=== PATIENT | female | born 1985 | race Caucasian/White ===

== ENCOUNTER 2018-02-27 07:11 | Emergency (ER) | payer OTHER ==
[~2018-02-27] VITALS: Ht 165.1 cm; Wt 90.7 kg
[~2018-02-27 07:11] MED LIST: AMOX500C2; AMOX500C2 PO; HYDR-3454 PO; OMEP20CA12 PO
--- NOTE | 2018-02-27 07:33 | ED Upper Extremity ---
General Chief Complaint: Upper Extremity Stated Complaint: SHOULDER PAIN Source: patient, other Exam Limitations: no limitations History of Present Illness Date Seen by Provider: Feb 27, 2018 Time Seen by Provider: 07:22 Initial Comments The patient presents to ER by private conveyance with chief complaint that for the past 3 days now she's been experiencing some pain in her right shoulder on movement. It started up when she woke up in the morning. She says she's had pain in her shoulder before like this but usually goes away in a few days on its own. She's been using a Profen with moderate to good relief. Her last dose of ibuprofen was around 3 or 4:00 in the morning she took 600 mg. She said she has not had any trauma, falls or other previous history of injury or surgery on her shoulder. She has no history of gout. No history of significant medical problems or surgeries. She has an IUD in place. Allergies and Home Medications Allergies Coded Allergies: NKANo Known Allergies (Verified Allergy, Unknown, 01/16/06) No Known Drug Allergies (Verified , 11/08/07) Home Medications Hydrocodone Bit/Acetaminophen 1 Each Tablet, 1 TAB PO Q4H PRN for PAIN Prescribed by: GEORGES POMPA on 03/02/14 0941 Omeprazole 20 Mg Capsule.dr, 20 MG PO DAILY, (Reported) Patient Home Medication List Home Medication List Reviewed: Yes Review of Systems Constitutional: No chills, No diaphoresis EENTM: No hearing loss, No ear pain Respiratory: No cough, No short of breath Cardiovascular: No chest pain, No edema Gastrointestinal: No abdominal pain, No nausea Genitourinary: No discharge, No dysuria : No Control/STD Prophylaxis: IUD Past Dbqbeqf-Kvvqpb-Kfyzrf Hx Patient Social History Alcohol Use: Occasionally Uses Recreational Drug Use: No Smoking Status: Never a Smoker Seasonal Allergies Seasonal Allergies: Yes Past Medical History Gallbladder Family Medical History Diabetes Physical Exam Vital Signs Vital Signs - First Documented 02/27/18 07:23 Temp 98.0 Pulse 78 Resp 16 B/P (MAP) 129/76 (93) Pulse Ox 100 O2 Delivery Room Air Capillary Refill : Height, Weight, BMI Height: 5'5" Weight: 211lbs. oz. 95.846106cn; 35.11 BMI Method:Stated General Appearance: WD/WN, no apparent distress HEENT: PERRL/EOMI, pharynx normal Neck: non-tender, full range of motion, supple, normal inspection Cardiovascular: normal peripheral pulses, regular rate, rhythm Respiratory: chest non-tender, no respiratory distress, no accessory muscle use Shoulder: normal inspection, no evidence of injury, limited ROM (abduction limited to 90 passive right and extension limited to about 30 right side. Full flexion.), pain, soft tissue tenderness Elbow/Forearm: normal inspection, non-tender, no evidence of injury, normal ROM , Right Progress/Results/Core Measures Results/Orders My Orders Orders - ELISABET RIVERA Shoulder, Right, 3 Views (02/27/18 07:29) Vital Signs/I&O 02/27/18 07:23 Temp 98.0 Pulse 78 Resp 16 B/P (MAP) 129/76 (93) Pulse Ox 100 O2 Delivery Room Air Progress Progress Note : Time: 07:32 Progress Note Non-injury shoulder pain consistent with possible osteoarthritis versus other. We'll get an x-ray and then have her follow-up with primary care for further evaluation. He had some ibuprofen and we have offered her Toradol but she is declining at this time. We will give her an ice pack and encourage conservative care. Diagnostic Imaging Diagonstic Imaging: Xray Plain Films/CT/US/NM/MRI: other (right shoulder) Comments No acute osseous abnormalities. Reviewed: Reviewed by Me Departure Impression Primary Impression: Shoulder pain, right Qualified Codes: M25.511 - Pain in right shoulder Disposition: 01 HOME, SELF-CARE Condition: Stable Departure-Patient Inst. Decision time for Depature: 08:34 Referrals: LUCINDA ROGERS DO (PCP/Family) Primary Care Physician Patient Instructions: Passive Range of Motion Exercises, Neck and Shoulders Add. Discharge Instructions: Apply ice for 20 minutes every 4 hours as needed alternated with heat. You can also use creams such as icy hot on your shoulder. Start taking the Naprosyn prescription tablet one tablet twice a day or 2 [id number] twice a day for the next 2 weeks. You can also use Tylenol 1000 mg every 8 hours as needed for breakthrough pain. If you're not seeing relief and 1-2 weeks then you should follow-up with primary care for referral to physical therapy and further evaluation. All discharge instructions reviewed with patient and/or family. Voiced understanding. Scripts Naproxen (Naprosyn) 500 Mg Tablet 500 MG PO BID for 14 Days, #30 TAB 0 Refills Prov: ELISABET RIVERA 02/27/18 Work/School Note: Work Release Form Date Seen in the Emergency Department: Feb 27, 2018 Return to Work: Feb 27, 2018 Restrictions: Need Release from Doctor Other Restrictions Listed Below: No lifting with right shoulder until . ELISABET RIVERA Feb 27, 2018 07:33
[2018-02-27] MEDS ORDERED: NAPR-1071 PO (08:37)
[2018-02-27 08:44] VITALS: BP 129/76
--- NOTE | 2018-02-27 09:33 | Diagnostic Imaging Report ---
INDICATION: Right shoulder pain starting two days earlier. No known injury. TECHNIQUE: Three views of the right shoulder CORRELATION STUDY: None FINDINGS: The glenohumeral and acromioclavicular alignment are maintained and unremarkable. There is no evidence for acute fracture or dislocation. Mild prominent C7 cervical ribs. The visualized soft tissues are unremarkable. IMPRESSION: 1. Negative for acute bony abnormality about the shoulder. Dictated by: Dictated on workstation # [id number]
== END 2018-02-27 08:44 | disposition home or self-care (01) ==
LOC: EDUNIT# 07:11 → ER 07:12
DX: M25.511 Pain in right shoulder (principal)
CPT/HCPCS: 73030

== ENCOUNTER → 2022-04-19 | Outpatient (CLI) | payer OTHER ==
[~2022-04-19] MED LIST changes: +NAPR-1071 PO
--- NOTE | 2022-04-19 13:56 | Diagnostic Imaging Report ---
INDICATION: Left breast lumps. No prior studies are available for comparison. Sonographic interrogation at the area of lump was performed. This is the upper as well as the upper inner aspect of the left breast. No sonographic abnormality is identified. No solid or cystic masses detected. IMPRESSION: No sonographic abnormalities identified. Continued close clinical and self breast exam is recommended to confirm stability. If some symptoms persist, consideration should be given to performance of a diagnostic mammogram. ACR BI-RADS Category 1: Negative. Result letter will be mailed to the patient. Note: At least 10% of breast cancer is not imaged by mammography. BI-RADS Category 1 Dictated by: Dictated on workstation # [id number]
== END ==
LOC: RAD 11:44
PROVIDERS: ATTEND Nurse Practitioner Family
DX: N63.20 Unspecified lump in the left breast, unspecified quadrant (principal)

== ENCOUNTER 2022-08-20 11:11 | Emergency (ER) | payer OTHER ==
[~2022-08-20] VITALS: Ht 165.1 cm; Wt 107.0 kg
[2022-08-20 11:30] LABS: BILIRUBIN,URINE NEGATIVE (NEGATIVE); CLARITY,URINE CLEAR; COLOR,URINE YELLOW; GLUCOSE, URINE (UA) NEGATIVE (NEGATIVE); KETONES,URINE NEGATIVE (NEGATIVE); LEUKOCYTE ESTERASE ,URINE TRACE (NEGATIVE); NITRITE,URINE NEGATIVE (NEGATIVE); PROTEIN,URINE NEGATIVE (NEGATIVE)
[2022-08-20] MEDS ORDERED: ONDANSETRON 4 MG/2 ML (SDV) Z0FRAN IVP ONE (11:30)
[2022-08-20] MEDS ORDERED: NS IV 1000 ML 1,000 ML IV STA (11:30)
--- NOTE | 2022-08-20 11:34 | ED General ---
General Chief Complaint: General Problems/Pain Stated Complaint: DEHYDRATED Nursing Triage Note: PT AMB TO ED BY POV WITH C/O "FEELING OFF." PT REPORTS SHE HAD A TUBAL LIGATION ON MONDAY WITH NO ISSUES. PT BEGAN FEELING LIGHT HEADED AND "FOGGY" TODAY WITH SOME SLIGHT NAUSEA. DENIES PAIN, URINARY SX, FEVER, OR ANY OTHER SX AT THIS TIME. STATES SHE PROBABLY HAS NOT BEEN DRINKING ENOUGH FLUIDS. Source of Information: Patient Exam Limitations: No Limitations (YISEL COATS) History of Present Illness Date Seen by Provider: Aug 20, 2022 Time Seen by Provider: 11:31 Initial Comments Patient is a 37-year-old female who presents the ED with feeling off, weak and lightheaded. She states symptoms started this morning when she woke up. [place] "foggy" today with some light nausea. Denies any vomiting. She had a tubal ligation performed by Dr. Franz at [facility] this past Monday. She states since the surgery she has had no pain in her lower abdomen. No pain today. She states her incision sites appear to be healing. Denies any drainage, redness or swelling around the incision sites in her lower abdomen. She states she is urinating without any difficulties. Has not been eating as much postsurgery. She states she feels dehydrated and requesting fluids. She denies of any chest pain, cough, fever, vomiting, diarrhea, dysuria, hematuria, visual changes, sore throat or ear pain. No known medical problems or takes jina ly medication. Not currently on antibiotics (YISEL COATS) Allergies and Home Medications Allergies Coded Allergies: NKANo Known Allergies (Verified Allergy, Unknown, 01/16/06) No Known Drug Allergies (Verified , 11/08/07) Patient Home Medication List Home Medication List Reviewed: Yes (YISEL COATS) Hydrocodone Bit/Acetaminophen (Vicodin 5-300 Mg Tablet) 1 Each Tablet, 1 TAB PO Q4H PRN for PAIN Prescribed by: GEORGES POMPA on 03/02/14 0941 Naproxen (Naprosyn) 500 Mg Tablet, 500 MG PO BID Prescribed by: ELISABET RIVERA on 02/27/18 0837 Omeprazole (Omeprazole) 20 Mg Capsule., 20 MG PO DAILY, (Reported) Entered as Reported by: GEORGINA LLAMAS on 03/01/14 0809 Review of Systems Review of Systems Constitutional: No chills, No dizziness, No fever; malaise, weakness EENTM: No ear pain, No blurred vision Respiratory: No cough, No dyspnea on exertion Cardiovascular: No chest pain, No edema Gastrointestinal: No abdominal pain, No diarrhea, No vomiting Genitourinary: No decreased output, No discharge Musculoskeletal: No back pain, No joint pain Skin: No change in color, No change in hair/nails Psychiatric/Neurological: Denies Anxiety, Denies Depressed, Denies Headache, Denies Numbness (YISEL COATS) All Other Systems Reviewed Negative Unless Noted: Yes (YISEL COATS) Past Zyvqaru-Wtpilp-Hreqya Hx Seasonal Allergies Seasonal Allergies: Yes (YISEL COATS) Past Medical History Surgeries: Yes (ERCP W/ STONE REMOVAL, STENT PLACEMENT) Gallbladder Respiratory: No Cardiac: No Neurological: No Genitourinary: No Gastrointestinal: Yes (INDIGESTION) Musculoskeletal: No Endocrine: No HEENT: No Cancer: No Psychosocial: No Integumentary: No (YISEL COATS) Family Medical History Diabetes (YISEL COATS) Physical Exam Vital Signs Vital Signs - First Documented 08/20/22 11:18 Temp 36.9 Pulse 84 Resp 16 B/P (MAP) 149/94 (112) Pulse Ox 100 O2 Delivery Room Air (CHRISTINE MAIN MD) Vital Signs Capillary Refill : Less Than 3 Seconds (YISEL COATS) Height, Weight, BMI Height: 5'5.00" Weight: 200lbs. oz. 90.089481wb; 39.00 BMI Method:Stated General Appearance: No Apparent Distress, WD/WN Eyes: Bilateral Eye Normal Inspection, Bilateral Eye PERRL, Bilateral Eye EOMI HEENT: PERRL/EOMI, TMs Normal, Normal ENT Inspection, Pharynx Normal Neck: Full Range of Motion, Normal Inspection, Non Tender, Supple Respiratory: Chest Non Tender, Lungs Clear, Normal Breath Sounds, No Accessory Muscle Use, No Respiratory Distress Cardiovascular: Regular Rate, Rhythm, No Edema, No Gallop, No JVD Gastrointestinal: Normal Bowel Sounds, No Organomegaly, No Pulsatile Mass, Non Tender Extremity: Normal Capillary Refill, Normal Inspection, Normal Range of Motion, Non Tender Neurologic/Psychiatric: Alert, Oriented x3, No Motor/Sensory Deficits, Normal Mood/Affect Skin: Normal Color, Warm/Dry, Other (3 healing surgical scars to lower abdomen. No surrounding redness or swelling) (YISEL COATS) Progress/Results/Core Measures Suspected Sepsis SIRS Temperature: Pulse: 84 Respiratory Rate: 16 Laboratory Tests 08/20/22 11:34: White Blood Count 8.6 Blood Pressure 149 /94 Mean: 112 Laboratory Tests 08/20/22 11:34: Creatinine 0.84, Platelet Count 338, Total Bilirubin 0.3 (YISEL COATS) Results/Orders Lab Results Laboratory Tests Test 08/20/22 11:22 08/20/22 11:34 Range/Units Urine Color YELLOW Urine Clarity CLEAR Urine pH 6.0 5-9 Urine Specific [place] 1.010 L 1.016-1.022 Urine Protein NEGATIVE NEGATIVE Urine Glucose (UA) NEGATIVE NEGATIVE Urine Ketones NEGATIVE NEGATIVE Urine Nitrite NEGATIVE NEGATIVE Urine Bilirubin NEGATIVE NEGATIVE Urine Urobilinogen 0.2 < = 1.0 MG/DL Urine Leukocyte Esterase TRACE H NEGATIVE Urine RBC (Auto) 3+ H NEGATIVE Urine RBC NONE /HPF Urine WBC 0-2 /HPF Urine Squamous Epithelial Cells RARE /HPF Urine Crystals NONE /LPF Urine Bacteria TRACE /HPF Urine Casts NONE /LPF Urine Mucus NEGATIVE /LPF Urine Culture Indicated NO Urine Test NEGATIVE NEGATIVE White Blood Count 8.6 4.3-11.0 10^3/uL Red Blood Count 4.55 3.80-5.11 10^6/uL Hemoglobin 11.7 11.5-16.0 g/dL Hematocrit 36 35-52 % Mean Corpuscular Volume 79 L 80-99 fL Mean Corpuscular Hemoglobin 26 25-34 pg Mean Corpuscular Hemoglobin Concent 33 32-36 g/dL Red Cell Distribution Width 12.9 10.0-14.5 % Platelet Count 338 130-400 10^3/uL Mean Platelet Volume 10.1 9.0-12.2 fL Immature Granulocyte % (Auto) 0 % Neutrophils (%) (Auto) 73 42-75 % Lymphocytes (%) (Auto) 18 12-44 % Monocytes (%) (Auto) 7 0-12 % Eosinophils (%) (Auto) 2 0-10 % Basophils (%) (Auto) 0 0-10 % Neutrophils # (Auto) 6.2 1.8-7.8 10^3/uL Lymphocytes # (Auto) 1.5 1.0-4.0 10^3/uL Monocytes # (Auto) 0.6 0.0-1.0 10^3/uL Eosinophils # (Auto) 0.2 0.0-0.3 10^3/uL Basophils # (Auto) 0.0 0.0-0.1 10^3/uL Immature Granulocyte # (Auto) 0.0 0.0-0.1 10^3/uL Sodium Level 139 135-145 MMOL/L Potassium Level 3.6 3.6-5.0 MMOL/L Chloride Level 105 98-107 MMOL/L Carbon Dioxide Level 24 21-32 MMOL/L Anion Gap 10 5-14 MMOL/L Blood Urea Nitrogen 10 7-18 MG/DL Creatinine 0.84 0.60-1.30 MG/DL Estimat Glomerular Filtration Rate 93 BUN/Creatinine Ratio 12 Glucose Level 81 70-105 MG/DL Calcium Level 8.7 8.5-10.1 MG/DL Corrected Calcium 8.8 8.5-10.1 MG/DL Magnesium Level 1.9 1.6-2.4 MG/DL Total Bilirubin 0.3 0.1-1.0 MG/DL Aspartate Amino Transf (AST/SGOT) 33 5-34 U/L Alanine Aminotransferase (ALT/SGPT) 49 0-55 U/L Alkaline Phosphatase 78 40-136 U/L Total Protein 7.3 6.4-8.2 GM/DL Albumin 3.9 3.2-4.5 GM/DL (CHRISTINE MAIN MD) Medications Given in ED Current Medications Medications Dose Ordered Sig/Edwin Route Start Time Stop Time Status Last Admin Dose Admin Ondansetron HCl 4 mg ONCE ONCE IVP 08/20/22 11:30 08/20/22 11:31 DC 08/20/22 11:36 4 MG (CHRISTINE MAIN MD) Vital Signs/I&O 08/20/22 08/20/22 11:18 12:50 Temp 36.9 Pulse 84 82 Resp 16 16 B/P (MAP) 149/94 (112) 143/82 Pulse Ox 100 100 O2 Delivery Room Air Room Air (CHRISTINE MAIN MD) Vital Signs/I&O Capillary Refill : Less Than 3 Seconds (YISEL COATS) Blood Pressure Mean: 112 Departure Communication (PCP) Patient brought to the ED by POV for generalized weakness, lightheadedness nausea. Patient had a tubal ligation performed at [facility] this past Monday. She reports decreased appetite and drinking at home. Not currently on any medication. She denies of any specific pains. She states her surgical scars on her lower abdomen appear to be healing. Denies of any dysuria, vaginal bleeding, vaginal discharge, vomiting, diarrhea, cough, chest pain or shortness of breath. She requesting a liter of fluid and states she feels dehydrated. Her vital signs are stable. CBC, CMP, magnesium and urinalysis was ordered. CBC, CMP grossly unremarkable. Urinalysis negative for infection. She does not appear toxic. Soft abdomen with minimal tenderness around surgical scars. Due to reassuring lab work afebrile with very minimal tenderness to lower abdomen imaging was held. Do not suspect infection at this time. She did did receive a liter of fluid and states she feels much better. Likely not eating as much postsurgery resulting in her symptoms. Discussed continue eating and drinking at home. Recommend electrolytes. If symptoms become worse, fever, and developing abdominal pain to return back to ED to rule out other potential etiologies. Patient agrees with plan of action (IYSEL COATS) Impression Primary Impression: Lightheaded Disposition: 01 HOME, SELF-CARE Condition: Stable Departure-Patient Inst. Decision time for Depature: 12:42 (YISEL COATS) Referrals: LUCINDA ROGERS DO (PCP/Family) Primary Care Physician Patient Instructions: Generalized Weakness Add. Discharge Instructions: Recommend continue staying hydrated. Recommend eating smaller meals. If any worsening symptoms return back to ED. Follow-up your primary care physician 2 to 3 days for reevaluation. All discharge instructions reviewed with patient and/or family. Voiced understanding. ATTENDING PHYSICIAN NOTE: I was physically present as attending physician in the emergency department during the care of this patient, but I was not directly involved in the decision making or delivery of care for this patient. (BRUEGGEMANN,CHRISTINE YISEL LINCOLN Aug 20, 2022 11:34 CHRISTINE MAIN MD Aug 20, 2022 21:42
[2022-08-20 11:41] LABS: BASOPHILS % (AUTO) 0 % (0-10); EOSINOPHILS # (AUTO) 0.2 10^3/uL (0.0-0.3); EOSINOPHILS % (AUTO) 2 % (0-10); HEMATOCRIT 36 % (35-52); HEMOGLOBIN 11.7 g/dL (11.5-16.0); LYMPHOCYTES # (AUTO) 1.5 10^3/uL (1.0-4.0); LYMPHOCYTES % (AUTO) 18 % (12-44); MEAN CORPUSCULAR HEMOGLOBIN 26 pg (25-34); MEAN CORPUSCULAR HGB CONC 33 g/dL (32-36); MEAN CORPUSCULAR VOLUME 79 fL (80-99); MEAN PLATELET VOLUME 10.1 fL (9.0-12.2); MONOCYTES # (AUTO) 0.6 10^3/uL (0.0-1.0); MONOCYTES % (AUTO) 7 % (0-12); NEUTROPHILS # (AUTO) 6.2 10^3/uL (1.8-7.8); NEUTROPHILS % (AUTO) 73 % (42-75); PLATELET COUNT 338 10^3/uL (130-400); WHITE BLOOD COUNT 8.6 10^3/uL (4.3-11.0)
[2022-08-20 11:42] LABS: BACTERIA,URINE TRACE /HPF; SQUAMOUS EPITHELIAL CELL,UR RARE /HPF; WBC,URINE 0-2 /HPF
[2022-08-20 11:49] LABS: ALBUMIN 3.9 GM/DL (3.2-4.5)
[2022-08-20 11:50] LABS: POTASSIUM 3.6 MMOL/L (3.6-5.0)
[2022-08-20 11:51] LABS: CALCIUM 8.7 MG/DL (8.5-10.1)
[2022-08-20 11:52] LABS: TOTAL PROTEIN 7.3 GM/DL (6.4-8.2)
[2022-08-20 11:54] LABS: BILIRUBIN,TOTAL 0.3 MG/DL (0.1-1.0)
[2022-08-20 11:56] LABS: CREATININE SERUM 0.84 MG/DL (0.60-1.30)
[2022-08-20 11:59] LABS: MAGNESIUM 1.9 MG/DL (1.6-2.4)
[2022-08-20 12:50] VITALS: BP 143/82
== END 2022-08-20 12:49 | disposition home or self-care (01) ==
LOC: EDUNIT# 11:11 → ER 11:12
DX: R42 Dizziness and giddiness (principal); R53.1 Weakness; R11.0 Nausea
CPT/HCPCS: 36415; 80053; 81000; 83735; 84703; 85025